=== PATIENT | female | born 1950 | race Caucasian/White ===

== ENCOUNTER 2024-10-02 06:30 | Day surgery (SDC) | payer OTHER ==
[2024-09-24 10:47] VITALS: BMI 24.7
[2024-10-02 10:52] VITALS: TEMP 98
[2024-10-02 11:05] VITALS: RESP 16
[2024-10-02 11:27] VITALS: BP 125/64; PULSE 56
== END 2024-10-02 11:40 | disposition home or self-care (01) ==
LOC: JASU-ENDO 06:30
PROVIDERS: ATTEND Internal Medicine Gastroenterology
PROC: 0DJD8ZZ Inspection of Lower Intestinal Tract, Via Natural or Artificial Opening Endoscopic (ICD-10-PCS; principal; 2024-10-02 08:30)
DX: Z12.11 Encounter for screening for malignant neoplasm of colon (principal); Z80.0 Family history of malignant neoplasm of digestive organs